=== PATIENT | female | born 1960 | race Caucasian/White ===

== ENCOUNTER 2018-03-05 12:12 | Emergency (ER) | payer OTHER ==
[2018-03-05 12:19] VITALS: BP 111/57; PULSE 72; TEMP 98; BMI 31.3
--- NOTE | 2018-03-05 12:49 | PDOC ---
History of Present Illness - General Chief Complaint: Injury Stated Complaint: INJURY Time Seen by Provider: 03/05/18 12:20 History Source: Patient Exam Limitations: No Limitations - History of Present Illness Initial Comments: 03/05/18 12:50 57-year-old female presents in regards complaints of right fourth toe pain after stepping twice over the past 2 weeks. Patient states able to move it but has pain to the base the toe and was concerned with fracture. Patient has no other medical history such as diabetes or gout Timing/Duration: constant Severity: mild Associated Symptoms: reports: denies symptoms Past History - Travel Traveled outside of the country in the last 30 days: No Close contact w/someone who was outside of country & ill: No - Past Medical History Allergies/Adverse Reactions: Allergies Allergy/AdvReac Type Severity Reaction Status Date / Time No Known Allergies Allergy Verified 03/05/18 12:16 Home Medications: Ambulatory Orders Testosterone [Vogelxo] 5 gm TD 03/05/18 COPD: No - Immunization History Immunization Up to Date: Yes - Suicide/Smoking/Psychosocial Hx Smoking Status: Yes Smoking History: Unknown if ever smoked Number of Cigarettes Smoked Daily: 10 Hx Alcohol Use: No Substance Use Type: None Patient Lives Alone: No Lives with/in: spouse/SO Review of Systems - Review of Systems Able to Perform ROS?: No Constitutional: No: Symptoms Reported Musculoskeletal: Yes: Joint Pain (rt 4th toe base) Integumentary: Yes: Bruising Neurological: No: Symptoms reported *Physical Exam - Vital Signs Last Vital Signs Temp Pulse Resp BP Pulse Ox 98 F 72 18 111/57 L 98 03/05/18 12:17 03/05/18 12:17 03/05/18 12:17 03/05/18 12:17 03/05/18 12:17 - Physical Exam General Appearance: Yes: Nourished, Appropriately Dressed. No: Apparent Distress Vascular Pulses: Dorsalis-Pedis (R): 2+ Extremity: positive: Normal Capillary Refill, Tender (distal aspect of rt 4th mtp). negative: Normal Range of Motion, Other (no deformity. FROM of rt 4th toe ) Integumentary: positive: Ecchymosis (base of rt 4th toe) Neurologic: positive: Motor Strength 5/5 (ambulatory) Moderate Sedation - Procedure Monitoring Vital Signs: Procedure Monitoring Vital Signs Temperature 98 F 03/05/18 12:17 Pulse Rate 72 03/05/18 12:17 Respiratory Rate 18 03/05/18 12:17 Blood Pressure 111/57 L 03/05/18 12:17 O2 Sat by Pulse Oximetry (%) 98 03/05/18 12:17 ED Treatment Course - RADIOLOGY Radiology Studies Ordered: Category Date Time Status FOOT-RIGHT [RAD] Stat Radiology 03/05/18 12:31 Ordered Medical Decision Making - Medical Decision Making 03/05/18 12:50 Chief complaint:right fourth toe pain Exam: Tenderness to the distal aspect of right fourth metatarsal. Plan: X-ray of the foot 03/05/18 12:51 X-ray shows no fracture. Supportive care actions given on discharge. *DC/Admit/Observation/Transfer Diagnosis at time of Disposition: Sprain of toe - Discharge Dispostion Disposition: HOME Condition at time of disposition: Good - Referrals - Patient Instructions Printed Discharge Instructions: DI for Toe Sprain Additional Instructions: May take Motrin for discomfort and apply ice to the affected area. Please wear proper fitting shoes to allow healing - Post Discharge Activity
== END 2018-03-05 13:02 | disposition home or self-care (01) ==
LOC: JERFT 12:12
DX: S93.514A Sprain of interphalangeal joint of right lesser toe(s), initial encounter (principal); X58.XXXA Exposure to other specified factors, initial encounter; Y93.9 Activity, unspecified; Y92.89 Other specified places as the place of occurrence of the external cause; Y99.8 Other external cause status
CPT/HCPCS: 73630-TC-RT-FY; 99281-25

== ENCOUNTER 2021-06-11 08:25 | Emergency (ER) | payer OTHER ==
[2021-06-11 08:31] VITALS: BP 129/79; PULSE 84; TEMP 98; BMI 37.3
[2021-06-11] MEDS ORDERED: ACETAMINOPHEN 500 MG TABLET (FP) PO ONE (09:14)
[2021-06-11] MEDS ORDERED: DIPHTH,PERTUSS(ACELL),TET 0.5 ML DISP.SYRIN IM ONE ×2 (09:23→11:15)
== END 2021-06-11 12:07 | disposition home or self-care (01) ==
LOC: JERFT 08:25 → JER 08:25 → JERFT 12:07
DX: S42.022A Displaced fracture of shaft of left clavicle, initial encounter for closed fracture (principal); D16.4 Benign neoplasm of bones of skull and face; W10.8XXA Fall (on) (from) other stairs and steps, initial encounter
CPT/HCPCS: 70450-TC; 71250-TC; 73000-TC-LT-FY; 73030-TC-LT-FY; 73590-TC-LT-FY; 90715; 99285-25

== ENCOUNTER 2021-06-15 21:55 | Emergency (ER) | payer OTHER ==
[2021-06-15 22:06] VITALS: BP 134/69; PULSE 90; TEMP 98.3; BMI 37.3
[2021-06-15] MEDS ORDERED: diazePAM 5 MG TABLET PO ONE (22:31)
[2021-06-15] MEDS ORDERED: morphine CARPU-JECT 4 MG/1 ML DISP.SYRIN IVPUSH ONE (22:36)
[2021-06-15] MEDS ORDERED: LIDOCAINE 5% TOPICAL PATCH TP ONE (22:36)
[2021-06-15] MEDS ORDERED: ONDANSETRON 4 MG/2 ML VIAL IVPUSH ONE (22:36)
[2021-06-15] MEDS ORDERED: diazePAM 5 MG TABLET ONE (22:43)
[2021-06-15] MEDS ORDERED: morphine SULFATE 4 MG/ML VIAL ONE (22:43)
[2021-06-15] MEDS ORDERED: LIDOCAINE 5% TOPICAL PATCH ONE (22:44)
[2021-06-15] MEDS ORDERED: ONDANSETRON 4 MG/2 ML VIAL ONE (22:44)
[2021-06-16] MEDS ORDERED: LIDOCAINE PATCH REMOVAL MC SCH (11:00)
== END 2021-06-16 00:18 | disposition home or self-care (01) ==
LOC: JER 21:55
PROC: 3E033NZ Introduction of Analgesics, Hypnotics, Sedatives into Peripheral Vein, Percutaneous Approach (ICD-10-PCS; principal; 2021-06-15)
PROC: 3E033GC Introduction of Other Therapeutic Substance into Peripheral Vein, Percutaneous Approach (ICD-10-PCS; 2021-06-15)
DX: M79.10 Myalgia, unspecified site (principal)
CPT/HCPCS: 99284-25

== ENCOUNTER 2021-06-21 06:10 | Day surgery (SDC) | payer OTHER ==
[2021-06-21 06:32] VITALS: BMI 37.3
[2021-06-21] MEDS ORDERED: morphine CARPU-JECT 4 MG/1 ML DISP.SYRIN IVPUSH ONE (06:42)
[2021-06-21] MEDS ORDERED: CEFAZOLIN 1 GM in DEXTROSE 5%-WATER - 50 ML IVPB ONE (06:47)
[2021-06-21] MEDS ORDERED: morphine SULFATE 4 MG/ML VIAL ONE (06:49)
[2021-06-21] MEDS ORDERED: ceFAZolin SODIUM 1 GM VIAL ONE (06:50)
[2021-06-21] MEDS ORDERED: ONDANSETRON 4 MG/2 ML VIAL ONE (06:58)
[2021-06-21] MEDS ORDERED: ONDANSETRON 4 MG/2 ML VIAL IVPUSH ONE (06:59)
[2021-06-21 07:24] LABS: PROTHROMBIN TIME (PATIENT) 11.5 SEC (9.7-13.0)
[2021-06-21 07:27] LABS: ACTIVATED PTT 33.3 SECONDS (25.2-36.5)
[2021-06-21 07:39] LABS: ALBUMIN 3.7 g/dl (3.4-5.0); BILIRUBIN,TOTAL 0.6 mg/dl (0.2-1); CALCIUM 9.2 mg/dl (8.5-10); CREATININE 0.6 mg/dl (0.55-1.3); TOT PROT 7.1 g/dl (6.4-8.2)
[2021-06-21 07:45] LABS: HEMATOCRIT 36.3 % (32.4-45.2); HEMOGLOBIN 12.2 G/dL (10.7-15.3); MCHC 33.7 g/dl (32.0-36.0); MEAN CELL VOLUME 88.9 fl (80-96); MEAN PLT VOLUME 7.8 fl (7.5-11.1); PLATELET COUNT 333.8 10^3/uL (134-434); RBC 4.08 10^6/uL (3.60-5.2); WHITE BLOOD COUNT 8.6 10^3/uL (4.0-10.8)
[2021-06-21 08:07] LABS: EPITHELIAL CELLS FEW /hpf
[2021-06-21 08:35] LABS: PLATELET ESTIMATE ADEQUATE
[2021-06-21] MEDS: LIDOCAINE 5% TOPICAL PATCH TP SCH (13:18)
[2021-06-21] MEDS: ENOXAPARIN NA (PORCINE) 40 MG/0.4 ML DISP.SYRIN SQ SCH (13:19)
[2021-06-21] MEDS ORDERED: oxyCODONE HCL 5 MG TABLET PO PRN (14:59)
[2021-06-21] MEDS ORDERED: PIPERACILLIN/TAZOB 3.375 GM 3.375 GM in DEXTROSE 5%-WATER - 50 ML IVPB SCH (16:00)
[2021-06-21] MEDS: ACETAMINOPHEN 1000 MG/100 ML BAG IVPB SCH ×2 (17:24→21:56)
[2021-06-21] MEDS ORDERED: DEXTROSE 5%-WATER - 50 ML IVPB ONE (18:19)
[2021-06-21] MEDS ORDERED: PIPERACILLIN/TAZOBACTAM 3.375 GM VIAL IVPB ONE (18:19)
[2021-06-21] MEDS: PIPERACILLIN/TAZOB 3.375 GM 3.375 GM in DEXTROSE 5%-WATER - 50 ML IVPB SCH (18:27)
[2021-06-21] MEDS: LIDOCAINE PATCH REMOVAL MC SCH (22:02)
[2021-06-22] MEDS ORDERED: PIPERACILLIN/TAZOBACTAM 3.375 GM VIAL IVPB ONE ×3 (01:07→17:39)
[2021-06-22] MEDS ORDERED: DEXTROSE 5%-WATER - 50 ML IVPB ONE ×3 (01:07→17:39)
[2021-06-22] MEDS: PIPERACILLIN/TAZOB 3.375 GM 3.375 GM in DEXTROSE 5%-WATER - 50 ML IVPB SCH ×3 (01:16→17:48)
[2021-06-22] MEDS: THYROID 30 MG TABLET PO SCH ×2 (01:44→06:48)
[2021-06-22] MEDS: TESTOSTERONE TD SCH ×2 (01:46→10:04)
[2021-06-22] MEDS: ACETAMINOPHEN 1000 MG/100 ML BAG IVPB SCH ×2 (02:22→09:58)
[2021-06-22 08:35] LABS: ALBUMIN 3.5 g/dl (3.4-5.0); BILIRUBIN,TOTAL 0.8 mg/dl (0.2-1); CALCIUM 9.1 mg/dl (8.5-10); CREATININE 0.7 mg/dl (0.55-1.3); TOT PROT 6.5 g/dl (6.4-8.2)
[2021-06-22 08:36] LABS: HEMOGLOBIN 11.3 G/dL (10.7-15.3); MCH 30.1 pg (25.7-33.7); MCHC 33.1 g/dl (32.0-36.0); MEAN CELL VOLUME 90.7 fl (80-96); MEAN PLT VOLUME 7.9 fl (7.5-11.1); PLATELET COUNT 312.5 10^3/uL (134-434); RBC 3.75 10^6/uL (3.60-5.2); RDW 14.4 % (11.6-15.6); WHITE BLOOD COUNT 7.4 10^3/uL (4.0-10.8)
[2021-06-22] MEDS ORDERED: SODIUM CHLORIDE FOR INHALATION 3 ML VIAL.NEB IH PRN (09:08)
[2021-06-22] MEDS: ENOXAPARIN NA (PORCINE) 40 MG/0.4 ML DISP.SYRIN SQ SCH (09:59)
[2021-06-22] MEDS: guaiFENesin 600 MG TABLET.ER (FP) PO SCH ×2 (09:59→21:08)
[2021-06-22] MEDS: LIDOCAINE 5% TOPICAL PATCH TP SCH (10:03)
[2021-06-23] MEDS: ACETAMINOPHEN 1000 MG/100 ML BAG IVPB PRN ×2 (00:46→21:49)
[2021-06-23] MEDS: PIPERACILLIN/TAZOB 3.375 GM 3.375 GM in DEXTROSE 5%-WATER - 50 ML IVPB SCH ×3 (02:00→18:33)
[2021-06-23] MEDS ORDERED: PIPERACILLIN/TAZOBACTAM 3.375 GM VIAL IVPB ONE ×3 (02:41→17:29)
[2021-06-23] MEDS ORDERED: DEXTROSE 5%-WATER - 50 ML IVPB ONE ×3 (02:42→17:30)
[2021-06-23] MEDS: THYROID 30 MG TABLET PO SCH (06:39)
[2021-06-23 09:05] LABS: ALBUMIN 3.6 g/dl (3.4-5.0); BILIRUBIN,TOTAL 0.7 mg/dl (0.2-1); CALCIUM 9.1 mg/dl (8.5-10); CREATININE 0.6 mg/dl (0.55-1.3); TOT PROT 6.7 g/dl (6.4-8.2)
[2021-06-23 09:34] LABS: HEMATOCRIT 35.9 % (32.4-45.2); MCHC 33.5 g/dl (32.0-36.0); MEAN CELL VOLUME 89.5 fl (80-96); MEAN PLT VOLUME 7.8 fl (7.5-11.1); PLATELET COUNT 333.6 10^3/uL (134-434); RBC 4.01 10^6/uL (3.60-5.2); RDW 14.3 % (11.6-15.6); WHITE BLOOD COUNT 9.2 10^3/uL (4.0-10.8)
[2021-06-23 09:37] LABS: BASO % 0.5 % (0-2.0); EOS % 2.8 % (0-4.5); LYMPH % 30.4 % (8-40); MONO % 7.8 % (3.8-10.2); NEUT % 58.6 % (42.8-82.8)
[2021-06-23] MEDS: guaiFENesin 600 MG TABLET.ER (FP) PO SCH ×2 (09:42→21:47)
[2021-06-23] MEDS: LIDOCAINE 5% TOPICAL PATCH TP SCH (09:42)
[2021-06-23] MEDS: ENOXAPARIN NA (PORCINE) 40 MG/0.4 ML DISP.SYRIN SQ SCH (09:43)
[2021-06-23] MEDS: oxyCODONE HCL 5 MG TABLET PO PRN ×2 (10:07→20:12)
[2021-06-23] MEDS: NYSTATIN 500,000 UNITS/5 ML SUSPENSION PO SCH ×3 (11:27→23:11)
[2021-06-23] MEDS: BENZOYL PEROXIDE 5% 60 GM GEL..GRAM. TP SCH ×2 (12:37→21:50)
[2021-06-23] MEDS: LIDOCAINE PATCH REMOVAL MC SCH ×2 (20:22→21:47)
[2021-06-23] MEDS: DOCUSATE SODIUM 100 MG CAPSULE (FP) PO SCH (21:46)
[2021-06-23] MEDS: MICONAZOLE NITRATE 2% VAGINAL CREAM 45 GM TUBE VG SCH ×2 (21:48)
[2021-06-24] MEDS ORDERED: PIPERACILLIN/TAZOBACTAM 3.375 GM VIAL IVPB ONE ×3 (01:01→16:28)
[2021-06-24] MEDS ORDERED: DEXTROSE 5%-WATER - 50 ML IVPB ONE ×4 (01:02→16:28)
[2021-06-24] MEDS: PIPERACILLIN/TAZOB 3.375 GM 3.375 GM in DEXTROSE 5%-WATER - 50 ML IVPB SCH ×3 (02:00→16:39)
[2021-06-24] MEDS: NYSTATIN 500,000 UNITS/5 ML SUSPENSION PO SCH ×3 (06:29→17:21)
[2021-06-24] MEDS: THYROID 30 MG TABLET PO SCH (06:30)
[2021-06-24] MEDS ORDERED: ROPIVACAINE HCL/PF 100 MG/20 ML VIAL ONE (07:55)
[2021-06-24] MEDS ORDERED: MIDAZOLAM HCL 2 MG/2 ML SINGLE DOSE VIAL ONE (07:55)
[2021-06-24 08:07] LABS: ALBUMIN 3.6 g/dl (3.4-5.0); BILIRUBIN,TOTAL 0.7 mg/dl (0.2-1); CALCIUM 9.1 mg/dl (8.5-10); CREATININE 0.6 mg/dl (0.55-1.3)
[2021-06-24 08:08] LABS: HEMATOCRIT 38.5 % (32.4-45.2); HEMOGLOBIN 12.8 G/dL (10.7-15.3); MCH 29.7 pg (25.7-33.7); MCHC 33.3 g/dl (32.0-36.0); MEAN CELL VOLUME 89.4 fl (80-96); MEAN PLT VOLUME 7.7 fl (7.5-11.1); RBC 4.31 10^6/uL (3.60-5.2); RDW 14.4 % (11.6-15.6); WHITE BLOOD COUNT 8.7 10^3/uL (4.0-10.8)
[2021-06-24] MEDS ORDERED: SUCCINYLCHOLINE CHLORIDE 200 MG/10 ML SYRINGE ONE (08:12)
[2021-06-24] MEDS ORDERED: PROPOFOL 20 ML ONE ×3 (08:12)
[2021-06-24] MEDS ORDERED: DEXAMETHASONE SOD PHOSPHATE 4 MG/1 ML VIAL ONE (08:13)
[2021-06-24] MEDS ORDERED: LIDOCAINE HCL 2% JELLY (5 ML/TUBE) ONE (08:13)
[2021-06-24] MEDS ORDERED: ceFAZolin SODIUM 1 GM VIAL ONE ×3 (08:13→15:55)
[2021-06-24] MEDS ORDERED: ONDANSETRON 4 MG/2 ML VIAL ONE (08:13)
[2021-06-24] MEDS ORDERED: KETOROLAC TROMETHAMINE 30 MG/1 ML VIAL ONE (08:13)
[2021-06-24] MEDS ORDERED: SEVOFLURANE 250 ML BTL ONE (08:14)
[2021-06-24] MEDS ORDERED: TRANEXAMIC ACID 1000 MG/10 ML VIAL ONE (08:41)
[2021-06-24] MEDS ORDERED: HYDROmorphone HCL/PF 1 MG/ML VIAL ONE (10:54)
[2021-06-24] MEDS ORDERED: ONDANSETRON 4 MG/2 ML VIAL IVPUSH PRN (11:04)
[2021-06-24] MEDS ORDERED: PROMETHAZINE HCL 25 MG/1 ML VIAL IVPB PRN (11:04)
[2021-06-24] MEDS ORDERED: oxyCODONE HCL 5 MG TABLET PO PRN ×2 (11:04)
[2021-06-24] MEDS: LIDOCAINE 5% TOPICAL PATCH TP SCH (12:06)
[2021-06-24] MEDS: BENZOYL PEROXIDE 5% 60 GM GEL..GRAM. TP SCH ×2 (12:06→21:38)
[2021-06-24] MEDS: guaiFENesin 600 MG TABLET.ER (FP) PO SCH ×2 (12:07→21:38)
[2021-06-24] MEDS ORDERED: CEFAZOLIN 2 GM in DEXTROSE 5%-WATER - 50 ML IVPB SCH (16:30)
[2021-06-24] MEDS ORDERED: PIPERACILLIN/TAZOB 3.375 GM 3.375 GM in DEXTROSE 5%-WATER - 50 ML IVPB SCH (16:30)
[2021-06-24] MEDS: ACETAMINOPHEN 1000 MG/100 ML BAG IVPB PRN ×2 (17:20→23:04)
[2021-06-24 17:59] LABS: ANISOCYTOSIS RARE; PLATELET ESTIMATE ADEQUATE
[2021-06-24] MEDS: ARTIFICIAL TEARS (POLYVINYL ALCOHOL) OPTH DROPS OU PRN ×2 (18:01→21:37)
[2021-06-24] MEDS: MICONAZOLE NITRATE 2% VAGINAL CREAM 45 GM TUBE VG SCH (21:38)
[2021-06-24] MEDS: LIDOCAINE PATCH REMOVAL MC SCH (21:38)
[2021-06-24] MEDS: DOCUSATE SODIUM 100 MG CAPSULE (FP) PO SCH (21:38)
[2021-06-25] MEDS: NYSTATIN 500,000 UNITS/5 ML SUSPENSION PO SCH ×2 (00:30→06:41)
[2021-06-25] MEDS ORDERED: PIPERACILLIN/TAZOBACTAM 3.375 GM VIAL IVPB ONE ×2 (02:12→09:08)
[2021-06-25] MEDS ORDERED: DEXTROSE 5%-WATER - 50 ML IVPB ONE ×2 (02:12→09:08)
[2021-06-25] MEDS: PIPERACILLIN/TAZOB 3.375 GM 3.375 GM in DEXTROSE 5%-WATER - 50 ML IVPB SCH ×2 (03:00→09:13)
[2021-06-25] MEDS: ACETAMINOPHEN 1000 MG/100 ML BAG IVPB PRN (05:30)
[2021-06-25 06:08] VITALS: TEMP 97.9
[2021-06-25] MEDS: THYROID 30 MG TABLET PO SCH (06:41)
[2021-06-25 07:32] LABS: BILIRUBIN,TOTAL 0.4 mg/dl (0.2-1); CALCIUM 8.6 mg/dl (8.5-10); CREATININE 0.6 mg/dl (0.55-1.3); TOT PROT 5.9 g/dl (6.4-8.2)
[2021-06-25 07:42] LABS: HEMATOCRIT 30.8 % (32.4-45.2); HEMOGLOBIN 10.7 G/dL (10.7-15.3); MCHC 34.7 g/dl (32.0-36.0); MEAN CELL VOLUME 89.4 fl (80-96); MEAN PLT VOLUME 7.6 fl (7.5-11.1); PLATELET COUNT 299.2 10^3/uL (134-434); RBC 3.44 10^6/uL (3.60-5.2); RDW 14.1 % (11.6-15.6); WHITE BLOOD COUNT 13.7 10^3/uL (4.0-10.8)
[2021-06-25 08:01] VITALS: BP 109/56; PULSE 76
[2021-06-25] MEDS: ENOXAPARIN NA (PORCINE) 40 MG/0.4 ML DISP.SYRIN SQ SCH (09:12)
[2021-06-25] MEDS: guaiFENesin 600 MG TABLET.ER (FP) PO SCH (09:13)
[2021-06-25] MEDS: LIDOCAINE 5% TOPICAL PATCH TP SCH (09:13)
[2021-06-25] MEDS ORDERED: ASPIRIN 325 MG ENTERIC COATED TABLET (FP) PO SCH (10:00)
[2021-06-25] MEDS ORDERED: ASPIRIN 325 MG ENTERIC COATED TABLET (FP) PO ONE ×2 (10:00)
[2021-06-25] MEDS: BENZOYL PEROXIDE 5% 60 GM GEL..GRAM. TP SCH (10:00)
== END 2021-06-25 11:46 | disposition home or self-care (01) ==
LOC: FER 06:10 → UNDOADMOB 06:56 → FASUSAT 06:56 → FM/S 06:56 → INTOOBSV 06:56 → OBSVTOIN 06:56 → FM/S 11:28 → UNDOADMOB 12:26 → FM/S 12:26 → SUATTDRO 06-24 14:02 → FASUSAT 06-24 14:02
PROVIDERS: ATTEND Nurse Practitioner Acute Care
PROC: 0PSB04Z Reposition Left Clavicle with Internal Fixation Device, Open Approach (ICD-10-PCS; principal; 2021-06-24 09:09)
DX: S42.022A Displaced fracture of shaft of left clavicle, initial encounter for closed fracture (principal); W19.XXXA Unspecified fall, initial encounter; Y93.9 Activity, unspecified; Y92.9 Unspecified place or not applicable; E03.9 Hypothyroidism, unspecified; L03.116 Cellulitis of left lower limb; N39.0 Urinary tract infection, site not specified; B37.0 Candidal stomatitis; Z29.8 Encounter for other specified prophylactic measures
CPT/HCPCS: 23515; C1713; 36415; 71045-TC-FY; 73000-TC-LT-FY; 73000-TC-RT-FY; 80053; 81003; 81015; 83735; 85025; 85610; 85730; 86850; 86900; 86901; 87040; 93005; 93971-TC; 94760; 97116-GP; 97162-GP; 99285-25; C9803-CS; U0003; U0005

== ENCOUNTER 2021-06-26 18:34 | Emergency (ER) | payer OTHER ==
[2021-06-26 19:04] VITALS: BP 119/59; PULSE 89; TEMP 98.8; BMI 37.4
[2021-06-26] MEDS ORDERED: DOXYCYCLINE HYCLATE 100 MG CAPSULE PO ONE ×2 (19:25→19:27)
== END 2021-06-26 19:35 | disposition home or self-care (01) ==
LOC: FER 18:34
DX: L03.116 Cellulitis of left lower limb (principal)
CPT/HCPCS: 99283-25